=== PATIENT | male | born 1985 | race American Indian/Alaskan Native ===

== ENCOUNTER 2017-05-04 02:31 | Emergency (ER) | payer SELFPAY ==
[2017-05-04] MEDS ORDERED: TETRACAINE 0.5% OU ONE (07:26)
[2017-05-04] MEDS ORDERED: FUL-GLO OP ONE (07:26)
--- NOTE | 2017-05-04 08:07 | Emergency Department Report ---
Eye Injury/Foreign Body - HPI Duration: 1 week Eye Location: Left Severity: Mild Eye Symptoms: Eye Pain: Yes, Blurred Vision: Yes, Eye Redness: Yes, Grinding/ Hammering Metal: No, Contact Lens Use: No, Recalls Injury: Yes (poked in eye with finger), Photophobia: Yes Other History: 31 year old male presents to ED with left eye pain after being poked in eye with finger 1 week ago. patient is stable, neurologically intact and in no acute distress. patient denies complete vision loss ED Review of Systems ROS: Stated complaint: DIFFICULTY SEEING OUT OF L EYE Other details as noted in HPI Constitutional: denies: chills, fever Eyes: eye pain, vision change (blurry vision). denies: eye discharge ENT: denies: ear pain, throat pain Respiratory: denies: cough, shortness of breath, wheezing Cardiovascular: denies: chest pain, palpitations Endocrine: no symptoms reported Gastrointestinal: denies: abdominal pain, nausea, diarrhea Genitourinary: denies: urgency, dysuria Musculoskeletal: denies: back pain, joint swelling, arthralgia Skin: denies: rash, lesions Neurological: denies: headache, weakness, paresthesias Psychiatric: denies: anxiety, depression Hematological/Lymphatic: denies: easy bleeding, easy bruising ED Past Medical Hx - Past Medical History Previous Medical History?: No - Surgical History Past Surgical History?: No - Social History Smoking Status: Never Smoker Substance Use Type: None - Medications Home Medications: Home Medications Medication Instructions Recorded Confirmed Last Taken Type Amoxicillin [Trimox CAP] 500 mg PO Q8H #30 capsule 10/30/13 Unknown Rx HYDROcodone/APAP 5-325 [[place] 1 each PO Q6HR PRN #20 tablet 10/30/13 Unknown Rx 5/325 mg] Loratadine [Claritin] 10 mg PO DAILY #30 tablet 10/30/13 Unknown Rx Ibuprofen [Motrin 600 MG tab] 600 mg PO Q8H PRN #60 tablet 06/07/16 Unknown Rx predniSONE [Deltasone] 40 mg PO QDAY #5 tab 06/07/16 Unknown Rx Polymyxin B Sulf/Trimethoprim 1 drop OS QID #1 bottle 05/04/17 Unknown Rx [Polytrim Eye Drops] Eye Injury Exam - Exam General: Vital signs noted. No distress. Alert and acting appropriately. - Visual Acuity Left Vision Acuity Degree: 20/40 Eye Exam: Left Injection, Left EOMI, Left Fluorescein Uptake (slit lamp) (small corneal abrasion present on left side of conjunctiva), Left Photophobia, Neither Abnormal Pupil, Neither Eye Foreign Body, Neither Lid Foreign Body Right Vision Acuity Degree: 20/30 Bilateral Vision Acuity Degree: 20/25 ED Course Vital Signs 05/04/17 02:56 Temperature 98.6 F Pulse Rate 63 Respiratory 16 Rate Blood Pressure 131/80 O2 Sat by Pulse 99 Oximetry ED Medical Decision Making - Medical Decision Making 31 year old male presents to ED with left eye pain. wood's lamp shows small corneal abrasion present on left side of eye conjunctiva. no evidence of ulcer, foreign body or injury to globe. patient denies use of contact lens or glasses. patient agrees and understands to follow up with Receptionist Nurse within 2-3 days. Critical care attestation.: If time is entered above; I have spent that time in minutes in the direct care of this critically ill patient, excluding procedure time. ED Disposition Clinical Impression: Corneal abrasion, left Qualifiers: Encounter type: initial encounter Qualified Code(s): S05.02XA - Injury of conjunctiva and corneal abrasion without foreign body, left eye, initial encounter Disposition: DC-01 TO HOME OR SELFCARE Is pt being admited?: No Does the pt Need Aspirin: No Condition: Stable Instructions: Corneal Abrasion (ED) Additional Instructions: Please follow up with Receptionist Nurse within 2-3 days. Prescriptions: Polymyxin B Sulf/Trimethoprim [Polytrim Eye Drops] 1 drop OS QID #1 bottle Referrals: PRIMARY CARE, [Primary Care Provider] - 3-5 Days Forms: Work/School Release Form(ED)
[2017-05-04 08:50] VITALS: BP 128/69
== END 2017-05-04 08:47 | disposition home or self-care (01) ==
LOC: ED 02:31
DX: S05.02XA Injury of conjunctiva and corneal abrasion without foreign body, left eye, initial encounter (principal); X58.XXXA Exposure to other specified factors, initial encounter; Y93.89 Activity, other specified; Y92.89 Other specified places as the place of occurrence of the external cause; Y99.8 Other external cause status
CPT/HCPCS: 99283

== ENCOUNTER 2017-10-27 16:40 | Emergency (ER) | payer SELFPAY ==
[2017-10-27] MEDS ORDERED: ASPIRIN PO ONE (16:55)
[2017-10-27 17:16] LABS: Basophils % (Auto) 0.7 % (0.0-1.8); Eosinophils % (Auto) 0.2 % (0.0-4.3); Hematocrit 46.1 % (35.5-45.6); Hemoglobin 15.8 gm/dl (11.8-15.2); Lymphocytes # (Auto) 1.9 K/mm3 (1.2-5.4); Lymphocytes % (Auto) 29.9 % (13.4-35.0); Mean Corpuscular HGB Conc 34 % (32-34); Mean Corpuscular Hemoglobin 30 pg (28-32); Mean Corpuscular Volume 88 fl (84-94); Monocytes # (Auto) 0.5 K/mm3 (0.0-0.8); Monocytes % (Auto) 8.4 % (0.0-7.3); Platelet Count 238 K/mm3 (140-440); Red Blood Count 5.25 M/mm3 (3.65-5.03); Red Cell Distribution Width 14.3 % (13.2-15.2)
[2017-10-27 17:35] LABS: BUN/Creatinine Ratio 16; Blood Urea Nitrogen 14 mg/dL (9-20); Calcium 9.8 mg/dL (8.4-10.2); Hemolysis Index 9
[2017-10-27 23:05] VITALS: BP 131/76
--- NOTE | 2017-10-27 23:14 | Emergency Department Report ---
ED Chest Pain HPI - General Chief Complaint: Chest Pain Stated Complaint: CHEST PAIN Time Seen by Provider: 10/27/17 22:40 Source: patient Mode of arrival: Ambulatory Limitations: No Limitations - History of Present Illness Initial Comments: Mr. Reed is a 32-year-old male without signficant past medical history. For one week he has had aid left-sided chest pain. Pain is improved when he massages the area. The pain comes on at rest or sporadically with physical activity. He was seen by his PCP. When the PCP massaged the area, the pain did improve. He has increased his amount of physical activity. 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 MD Complaint: chest pain -: Gradual, week(s) (1) Onset: during rest, during exertion Pain Location: left chest Pain Radiation: none - Related Data Previous Rx's Medication Instructions Recorded Last Taken Type Amoxicillin [Trimox CAP] 500 mg PO Q8H #30 capsule 10/30/13 Unknown Rx HYDROcodone/APAP 5-325 [[place] 1 each PO Q6HR PRN #20 tablet 10/30/13 Unknown Rx 5/325 mg] Loratadine [Claritin] 10 mg PO DAILY #30 tablet 10/30/13 Unknown Rx Ibuprofen [Motrin 600 MG tab] 600 mg PO Q8H PRN #60 tablet 06/07/16 Unknown Rx predniSONE [Deltasone] 40 mg PO QDAY #5 tab 06/07/16 Unknown Rx Polymyxin B Sulf/Trimethoprim 1 drop OS QID #1 bottle 05/04/17 Unknown Rx [Polytrim Eye Drops] Ibuprofen 400 mg PO TID 5 Days #15 tablet 10/27/17 Unknown Rx Loratadine 10 mg PO DAILY #30 capsule 10/27/17 Unknown Rx Allergies Allergy/AdvReac Type Severity Reaction Status Date / Time No Known Allergies Allergy Verified 10/30/13 20:01 Heart Score - HEART Score History: Slightly suspicious EKG: Normal Age: < 45 Risk factors: No known risk factors Troponin: < normal limit HEART Score: 0 ED Review of Systems ROS: Stated complaint: CHEST PAIN Other details as noted in HPI Comment: All other systems reviewed and negative Constitutional: denies: fever, malaise Eyes: denies: eye pain, vision change ENT: denies: ear pain, throat pain Respiratory: denies: cough Cardiovascular: chest pain ED Past Medical Hx - Past Medical History Previous Medical History?: No - Surgical History Past Surgical History?: No - Family History Family history: no significant - Social History Smoking Status: Current Every Day Smoker Substance Use Type: Marijuana, Non Opiate Pain - Medications Home Medications: Home Medications Medication Instructions Recorded Confirmed Last Taken Type Amoxicillin [Trimox CAP] 500 mg PO Q8H #30 capsule 10/30/13 Unknown Rx HYDROcodone/APAP 5-325 [[place] 1 each PO Q6HR PRN #20 tablet 10/30/13 Unknown Rx 5/325 mg] Loratadine [Claritin] 10 mg PO DAILY #30 tablet 10/30/13 Unknown Rx Ibuprofen [Motrin 600 MG tab] 600 mg PO Q8H PRN #60 tablet 06/07/16 Unknown Rx predniSONE [Deltasone] 40 mg PO QDAY #5 tab 06/07/16 Unknown Rx Polymyxin B Sulf/Trimethoprim 1 drop OS QID #1 bottle 05/04/17 Unknown Rx [Polytrim Eye Drops] Ibuprofen 400 mg PO TID 5 Days #15 tablet 10/27/17 Unknown Rx Loratadine 10 mg PO DAILY #30 capsule 10/27/17 Unknown Rx ED Physical Exam - General Limitations: No Limitations General appearance: alert, in no apparent distress - Head Head exam: Present: atraumatic, normocephalic - Eye Eye exam: Present: normal appearance - ENT ENT exam: Present: mucous membranes moist - Neck Neck exam: Present: normal inspection - Respiratory Respiratory exam: Present: normal lung sounds bilaterally. Absent: respiratory distress, wheezes, rales, rhonchi - Cardiovascular Cardiovascular Exam: Present: regular rate, normal rhythm, normal heart sounds. Absent: systolic murmur, diastolic murmur, rubs, gallop - GI/Abdominal GI/Abdominal exam: Present: soft, normal bowel sounds. Absent: distended, tenderness, guarding, rebound - Rectal Rectal exam: Present: deferred - Extremities Exam Extremities exam: Present: normal inspection - Back Exam Back exam: Present: normal inspection - Neurological Exam Neurological exam: Present: alert, oriented X3 - Psychiatric Psychiatric exam: Present: normal affect, normal mood - Skin Skin exam: Present: warm, dry, intact, normal color. Absent: rash ED Course Vital Signs 10/27/17 10/27/17 10/27/17 16:56 21:02 21:16 Temperature 98.7 F Pulse Rate 76 85 74 Respiratory 20 14 18 Rate Blood Pressure 139/90 O2 Sat by Pulse 95 Oximetry 10/27/17 10/27/17 10/27/17 21:30 21:34 21:46 Temperature Pulse Rate 68 66 Respiratory 15 16 16 Rate Blood Pressure 133/74 133/74 O2 Sat by Pulse 100 95 99 Oximetry 10/27/17 10/27/17 10/27/17 22:00 22:16 22:30 Temperature Pulse Rate 69 78 Respiratory 19 17 Rate Blood Pressure 131/76 131/76 131/76 O2 Sat by Pulse 100 100 99 Oximetry 10/27/17 22:46 Temperature Pulse Rate 82 Respiratory 14 Rate Blood Pressure 131/76 O2 Sat by Pulse 100 Oximetry ED Medical Decision Making - Lab Data Result diagrams: 10/27/17 16:58 10/27/17 16:58 Laboratory Results - last 24 hr 10/27/17 10/27/17 10/27/17 16:58 16:58 19:43 WBC 6.3 RBC 5.25 H Hgb 15.8 H Hct 46.1 H MCV 88 MCH 30 MCHC 34 RDW 14.3 Plt Count 238 Lymph % (Auto) 29.9 [place] % (Auto) 8.4 H Eos % (Auto) 0.2 Baso % (Auto) 0.7 Lymph # 1.9 [place] # 0.5 Eos # 0.0 Baso # 0.0 Seg Neutrophils % 60.8 Seg Neutrophils # 3.9 Sodium 136 L Potassium 3.9 Chloride 97.0 L Carbon Dioxide 26 Anion Gap 17 BUN 14 Creatinine 0.9 Estimated GFR > 60 BUN/Creatinine Ratio 16 Glucose 78 Calcium 9.8 Troponin T < 0.010 < 0.010 Vital Signs - 24 hr 10/27/17 10/27/17 10/27/17 16:56 21:02 21:16 Temperature 98.7 F Pulse Rate 76 85 74 Respiratory 20 14 18 Rate Blood Pressure 139/90 O2 Sat by Pulse 95 Oximetry 10/27/17 10/27/17 10/27/17 21:30 21:34 21:46 Temperature Pulse Rate 68 66 Respiratory 15 16 16 Rate Blood Pressure 133/74 133/74 O2 Sat by Pulse 100 95 99 Oximetry 10/27/17 10/27/17 10/27/17 22:00 22:16 22:30 Temperature Pulse Rate 69 78 Respiratory 19 17 Rate Blood Pressure 131/76 131/76 131/76 O2 Sat by Pulse 100 100 99 Oximetry 10/27/17 22:46 Temperature Pulse Rate 82 Respiratory 14 Rate Blood Pressure 131/76 O2 Sat by Pulse 100 Oximetry - EKG Data 10/27/17 23:14 NSR nl rate nl axis nl intervals no ST-T signs of ischemia no ST elevation rate 80 bpm - Medical Decision Making Mr. Reed presents with 1 week of chest wall pain. My diagnosis is chest wall strain due to overuse at work. I prescribed one week of ibuprofen scheduled dosing. As an aside, patient admitted that he's had increasing shortness of breath after smoking. He smokes tobacco. Also uses cigar wrapping for marijuana use. He smokes marijuana daily. I has recommeded decreased tobacco use and inhalation of marijuana. I have prescribed loratadine for possible allergic bronchospasm. Critical care attestation.: If time is entered above; I have spent that time in minutes in the direct care of this critically ill patient, excluding procedure time. ED Disposition Clinical Impression: Chest wall muscle strain, Bronchospasm, acute Disposition: DC-01 TO HOME OR SELFCARE Is pt being admited?: No Does the pt Need Aspirin: No Condition: Stable Instructions: Muscle Strain (ED) Prescriptions: Ibuprofen 400 mg PO TID 5 Days #15 tablet Loratadine 10 mg PO DAILY #30 capsule Referrals: ALBANIA JACKSON MD [Primary Care Provider] - 3-5 Days Forms: Work/School Release Form(ED) Time of Disposition: 23:18
== END 2017-10-27 23:28 | disposition home or self-care (01) ==
LOC: ED 16:40
DX: S29.011A Strain of muscle and tendon of front wall of thorax, initial encounter (principal); J98.01 Acute bronchospasm; F17.200 Nicotine dependence, unspecified, uncomplicated; F12.10 Cannabis abuse, uncomplicated; X58.XXXA Exposure to other specified factors, initial encounter; Y93.89 Activity, other specified; Y92.89 Other specified places as the place of occurrence of the external cause; Y99.8 Other external cause status
CPT/HCPCS: 36415; 80048; 84484; 85025; 93005; 93010; 99284